=== PATIENT | female | born 1950 | race Asian ===

== ENCOUNTER 2016-05-11 05:56 | Day surgery (SDC) | payer MEDICARE, MEDICAID ==
[2016-05-11] VITALS (9 sets, daily range): BP systolic 120–160; BP diastolic 56–74; PULSE 63–74; RESP 11–19; O2SAT 94–100
[~2016-05-11] VITALS: Ht 157.5 cm; Wt 68.7 kg
[~2016-05-11 05:56] MED LIST: AMLO10TA3 PO; FURO-129 PO; INSU100I8 SUBQ; INSU100V7 SUBQ; LOVA20TA PO; METO50TA3 PO; TIZA2TAB3 PO
[2016-05-11] MEDS ORDERED: fentaNYL-PF 50 mCg/mL 2 mL Inj ONE (05:57)
[2016-05-11] MEDS ORDERED: CeFAZolin 2 Gm/50 mL D5W IV Premix IV ONE (06:00)
[2016-05-11] MEDS: 0.9% Sodium Chloride 500 ML IV SCH ×2 (06:05→07:25)
--- NOTE | 2016-05-11 06:42 | PCM.HPANE ---
Patient Data Surgeon Admitting Provider: Attending Provider:Myao Daily MD Primary Care Physician:Tiburcio Ewing MD Other Provider:[facility] Reason for Visit Chronic Renal Failure Ht/WT & BMI Height (Feet): 5 Height (Inches): 2 Weight (Kilograms): 68.7 Body Mass Index 27.00 Allergies Coded Allergies: lisinopril (Verified Allergy, Unknown, cough, 05/06/16) Past Anesthesia History Anesthesia History: Denies:: Anesthesia Reactions Diabetes History Hx Diabetes?: Yes (last found Hgb A1C 06/2014 = 7.3) Glycemic Control: Insulin Dependent Medications Hypertension Medication: Yes Home Meds Incl Beta Dominique: Yes Reported Medications Atorvastatin (Lipitor)20 Mg [id number] Mg PO HS Ref 0 05/11/16 Insulin Aspart (NovoLOG U100 Insulin Vial)100 U/Ml U10 Unit SUBQ TIDWM #1 VIAL Ref 0 05/11/16 Tizanidine 2 Mg Tablet2 Mg PO TID 05/06/16 Metoprolol Tartrate 50 Mg Qumboj19 Mg PO BID 30 Days Ref 0 05/06/16 Lovastatin 20 Mg Mibaxa14 Mg PO HS #30 TABLET Ref 0 05/06/16 Furosemide (Lasix)20 Mg Touaht26 Mg PO DAILY 30 Days Ref 0 05/06/16 Insulin Glargine (Lantus U100 Insulin Vial)100 Unit/Ml Vial8 Unit SUBQ DAILY #1 VIAL Ref 0 05/06/16 Amlodipine 10 Mg Viwavi74 Mg PO DAILY Ref 0 05/06/16 Discontinued Reported Medications Rosuvastatin Calcium (Crestor)20 Mg Ftgilj66 Mg PO HS 30 Days Ref 0 05/11/16 Insulin Glulisine (Apidra U100 Insulin Solostar Pen)100 Unit/1 Ml Insuln.pen8- 12 Unit SUBQ lunch PRN per sliding scale #1 PENINJ Ref 0 05/06/16 History History of ENT Problems?: No Denture Type: Full- Upper Hx of Heart Problems?: Yes Cardiovascular History: Positive for:: Heart Murmur (as a child) Hypertension Denies:: Irregular Heartbeat Hx of Respiratory Problem?: No Respiratory History: Denies:: Oxygen Administration Use of C-PAP Machine Hx Neurologic Problems?: No Hx of GI Problems?: No Hx of Problems?: Yes Other Pertinent History: chronic kidney disease stage IV Female Hx: Denies:: Currently (tubal ligation) Hx Musculoskeletal Problems?: No Hx of Psycho/Social Problems?: No Hx Surgeries?: Yes (tubal) Hx Any Other Health Problems?: Yes Other History: Denies:: Cancer Thyroid Disease Hx Diabetes: Yes (last found Hgb A1C 06/2014 = 7.3) Hx Alcohol Use: NoHave You Smoked inLast 12 mo: No Stop/Bang S-Snoring: Do You Snore Loudly: No T-Tired: feel tired, fatigued: Yes O-Obsered: Observed not breath: No P-Blood Pressure: treated: Yes B- Body Mass Index > 35 kg/m2: No A- Age over 50: Yes N- Neck Large Circumference: No G- Gender Male: No MELISSA Total Score: 3 Risk Assessment Category Category 1A: Patient has history of documented sleep apnea, and HAS NOT received any narcotic, sedative or anesthesia administration during this stay. Category 1B: Patient has history of documented sleep apnea, and HAS received any narcotic , sedative or anesthesia administration during this stay Category 2: Patient has SUSPECTED Obstructive Sleep Apnea, and HAS received any narcotic , sedative or anesthesia administration during this stay. Category 3: Patient has SUSPECTED Obstructive Sleep Apnea and HAS NOT received narcotic, sedative or anesthesia administration during this stay. Category 4: Outpatient in Procedural Areas with known sleep apnea or who screen positive for High Risk via the STOP/BANG questionnaire. Exam Exam Vital Signs Vital Signs Date Time Temp Pulse Resp B/P Pulse Ox O2 Delivery O2 Flow Rate FiO2 05/11/16 06:29 36.3 63 19 160/56 100 Room Air General Appearance: Alert, Oriented X3, Cooperative HEENT/AIRWAY: MP 2, Neck Movement (from), Mouth Opening (wnl) Lungs: Clear to Auscultation Heart: Exam Unremarkable Meds/Labs/Diagnostics Admission Meds Current Medications Sodium Chloride (Normal Saline) 500 ml @ 10 mls/hr Q24H IV Last administered on 05/11/16t 06:05; Start 05/11/16 at 05:00; Stop 05/13/16 at 06:59 Plan Impression Patient chart reviewed, patient interviewed and anesthestic plan with risks, benefits, and alternatives discussed, and informed consent obtained. ASA Physical Status: ASA2 Mod Systemic Disease Anesthetic Plan: GA Bene/Risks/Altern/Consents: Yes HP Complete Prior to Induction: Yes Other Pt insists on Jorge Fuentes MD May 11, 2016 06:42
[2016-05-11] MEDS ORDERED: Bupivacaine-MPF 0.5% 30 mL Inj INFILTRATE ONE (07:10)
[2016-05-11] MEDS ORDERED: INSU100C8 SUBQ (07:11)
[2016-05-11] MEDS ORDERED: CRES20T PO (07:11)
[2016-05-11] MEDS ORDERED: Heparin 5,000 Unit/mL Inj IR ONE (07:11)
[2016-05-11] MEDS ORDERED: ATOR20TA PO (07:12)
[2016-05-11] MEDS ORDERED: Papaverine 30 mg/mL 2 mL Inj XX ONE (07:54)
[2016-05-11] MEDS ORDERED: Phenylephrine 10,000 mCg/mL Inj IVPUSH PRN (07:55)
[2016-05-11] MEDS ORDERED: Atropine 0.4 mg/mL Inj IVPUSH PRN (07:55)
[2016-05-11] MEDS ORDERED: EPHEDrine Sulfate 50 mg/mL Inj IVPUSH PRN (07:55)
[2016-05-11] MEDS ORDERED: Ondansetron 2 mg/mL 2 mL Inj IVPUSH PRN (07:55)
[2016-05-11] MEDS ORDERED: HYDROmorphone 1 mg/mL Inj IVPUSH PRN (07:55)
[2016-05-11] MEDS ORDERED: hydrALAZINE 20 mg/mL Inj IVPUSH PRN (07:55)
[2016-05-11] MEDS ORDERED: fentaNYL-PF 50 mCg/mL 2 mL Inj IVPUSH PRN (07:55)
[2016-05-11] MEDS ORDERED: Lactated Ringer's 1,000 ML IV SCH (07:55)
[2016-05-11] MEDS ORDERED: Labetalol 5 mg/mL 4 mL Inj IV PRN (07:55)
[2016-05-11] MEDS ORDERED: Ondansetron 2 mg/mL 2 mL Inj ONE (09:00)
[2016-05-11] MEDS ORDERED: EPHEDrine/NS 5 mg/mL 5 mL Syringe ONE (09:00)
[2016-05-11] MEDS ORDERED: Propofol 10,000 mCg/mL 20 mL Inj ONE (09:00)
[2016-05-11] MEDS ORDERED: HYDROcodone-APAP 5-325 mg Tablet PO PRN (09:20)
--- NOTE | 2016-05-11 09:36 | PCM.ANEP1 ---
Post Anesthesia Phase 1 PACU Phase 1 Assessment Vital Signs Vital Signs Date Time Temp Pulse Resp B/P Pulse Ox O2 Delivery O2 Flow Rate FiO2 05/11/16 09:30 70 11 143/60 95 Room Air 05/11/16 09:25 71 14 156/59 95 Room Air 05/11/16 09:20 74 15 149/59 96 Room Air 05/11/16 09:17 36.9 72 14 157/59 96 Room Air 05/11/16 07:00 36.3 63 19 160/56 100 Room Air 05/11/16 06:29 36.3 63 19 160/56 100 Room Air Anesthetic Administered: GA Level of Alertness: Awake, talking HART's with Equal Strength: Yes Pain: No Nausea or Vomiting: No Oxygen Delivery: Room Air Lungs: Normal Air Movement Jorge Thayer MD May 11, 2016 09:36
--- NOTE | 2016-05-11 12:25 | OP ---
[address] [address] OPERATIVE REPORT PATIENT: ATTILA ADRIAN : 1950 MR#: [id number] ADMIT: 05/11/2016 JOB ID: [id number] DATE OF SURGERY: 05/11/2016 PREOPERATIVE DIAGNOSIS(ES): Stage 4 chronic renal failure. POSTOPERATIVE DIAGNOSIS(ES): 1. Stage 4 chronic renal failure. 2. Calcific atherosclerosis of right brachial artery. OPERATION: Right brachiocephalic arteriovenous fistula. SURGEON: Mayo Daily MD. ASSISTANTS: Natalia Mon MD; Rashmi Leiva PA-C. INDICATIONS: A 65-year-old female who has diabetes and progressive renal failure now at stage 4. She was seen almost a year ago but then went back to the [facility], returning now for a fistula. Her preoperative arterial and venous duplex exam showed a 3.1 mm brachial artery. She did not have any veins greater than 3 mm but on physical examination, her right antecubital cephalic vein seemed worth trying. So, after discussing options with the patient, it was elected to proceed with a right brachiocephalic AV fistula. FINDINGS: She had calcific but nonstenotic plaque in her brachial artery. Her vein was right around 3 mm when I first saw it but then it went into spasm. At the conclusion of the operation, she had a three-component Doppler signal in the vein and easily palpable venous pulse and an easily palpable right radial pulse. DESCRIPTION OF PROCEDURE: At the beginning and end of the operation, the SCOAP checklist was completed. She received an LMA anesthetic and using ChloraPrep, her right upper extremity was prepped and draped in the usual fashion. A right antecubital incision was designed and made and then, using sharp dissection and cautery, the cephalic vein was exposed. The brachial artery was then exposed and with sharp dissection, controlled proximally and distally with vessel loops. The vein was divided where it came off of the median cubital vein ligating the median cubital venous side with 3-0 silk suture ligature. The vein was flushed with heparinized saline. The artery was opened longitudinally and flushed with heparinized saline. The anastomosis was completed with running 6-0 Prolene. [place] through the anastomosis, the vein was flushed with papaverine. The artery was backflushed into the vein, followed by forward flushing into the vein and then forward flow to the hand with results as stated above. There was no bleeding from the anastomosis. There was blood loss during the operation. It was approximately 20 cc. There were no apparent complications. The wound was closed with running subcutaneous 3-0 Vicryl and running subcuticular 4-0 Vicryl. Dermabond was applied. The final sponge, needle and instrument counts were announced as correct, and the patient was returned to the recovery room in stable condition. Critical assistance provided by ROSIO Barry
--- NOTE | 2016-05-12 07:03 | PCM.ANEP2 ---
Post Anesthesia Evaluation ASA/CMS Post Anesthesia VS in Patient's Normal Range?: Yes Resp Stable; Airway Patent?: Yes CV Function & Hydration Stable: Yes Mental Status Recovered?: Yes Pain control Satisfactory?: Yes N/V Control Satisfactory?: Yes Jorge Thayer MD May 12, 2016 07:03
== END 2016-05-11 23:59 | disposition home or self-care (01) ==
LOC: SAS 05:56
PROVIDERS: ATTEND Surgery
DX: N18.4 Chronic kidney disease, stage 4 (severe) (principal); I70.208 Unspecified atherosclerosis of native arteries of extremities, other extremity; I13.10 Hypertensive heart and chronic kidney disease without heart failure, with stage 1 through stage 4 chronic kidney disease, or unspecified chronic kidney disease; E11.22 Type 2 diabetes mellitus with diabetic chronic kidney disease; Z99.2 Dependence on renal dialysis; Z79.4 Long term (current) use of insulin
CPT/HCPCS: 36415; 36818; 84132; J0690; J1644; J2405; J3010; J7040